=== PATIENT | male | born 1955 | race Caucasian/White ===

== ENCOUNTER → 2016-11-11 | Outpatient (CLI) | payer OTHER ==
[~2016-11-11] MED LIST: ALBU8.5H3 INH; ALBU8.5H5 INH; ALPR0.5T6 PO; ASPI-496 PO; ASPI-515 PO; ASPI-621 PO; ATOR40TA78 PO; ATOR80TA PO; AZIT-14 PO; BENZ100C4 PO; CARV3.122 PO; CARV6.2512 PO; CARV6.252 PO; CEFD300C2 PO; CITA10TA4 PO; CLOP75TA PO; CYAN10005 PO; FLUT1DIS3 INH; GABA300C10 PO; IPRA3AMP NPPB; LEVO750T26 PO; LISI2.5T PO; LISI5TAB7 PO; METH4TAB2 PO; MORP15TA PO; MORP15TA3 PO; MORP15TA39 PO; NICO1PAT4 TD; NITR0.4T8 SL; OMEP40CA6 PO; PRAV80TA2 PO; PRED20TA PO; RANI150T4 PO; TICA90TA PO; WARF5TAB7 PO
== END | disposition home or self-care (01) ==
LOC: CFH 13:47
PROVIDERS: ATTEND Nurse Practitioner Family
DX: J18.9 Pneumonia, unspecified organism (principal)
CPT/HCPCS: 71020

== ENCOUNTER 2017-02-16 17:54 | Emergency (ER) | payer OTHER ==
[~2017-02-16] VITALS: Ht 175.3 cm; Wt 80.0 kg
[~2017-02-16 17:54] MED LIST changes: +AMIODARONE 50 MG/ML, 3ML ONE; +ATROPINE SYRINGE 0.1 MG/ML, 10ML ONE; -AZIT-14 PO; +AZIT250T89 PO; -CEFD300C2 PO; +CEFD300C37 PO; +EPINEPHRINE SYRINGE 0.1 MG/ML, 10ML ONE; +ETOMIDATE 20 MG/10 ML ONE; +MORP-52 PO; -MORP15TA39 PO; +PROPOFOL 10 MG/ML, 100ML IV ONE; +SODIUM BICARB 8.4%, 50ML SYRINGE ONE; +VECURONIUM 10 MG ONE
[2017-02-16] MEDS ORDERED: KETAMINE 10 MG/ML, 20ML ONE ×2 (18:14→18:24)
[2017-02-16] MEDS ORDERED: RACEPINEPHRINE INH 2.25%, 0.5ML ONE (18:24)
[2017-02-16] MEDS ORDERED: PROPOFOL 100 ML IV PRN (18:52)
[2017-02-16] MEDS ORDERED: FENTANYL PF 100 MCG/2ML ONE (18:52)
[2017-02-16 19:00] VITALS: BP 155/87
[2017-02-16] MEDS ORDERED: SODIUM CHLORIDE FLUSH 10ML SYR IVF PRN (19:00)
[2017-02-16] MEDS ORDERED: AMIODARONE 900 MG in DEXTROSE 5% 482 ML IV PRN (19:00)
[2017-02-16] MEDS ORDERED: SODIUM CHLORIDE FLUSH 10ML SYR IVF ONE (19:00)
[2017-02-16] MEDS ORDERED: ETOMIDATE 20 MG/10 ML IV ONE (19:00)
[2017-02-16] MEDS ORDERED: SODIUM CHLORIDE 0.9% 1,000ML IVBOLUS ONE (19:00)
[2017-02-16] MEDS ORDERED: KETAMINE 100 MG/ML, 5ML IV ONE (19:00)
[2017-02-16] MEDS ORDERED: FENTANYL PF 100 MCG/2ML IV ONE (19:00)
[2017-02-16] MEDS ORDERED: EPINEPHRINE 1 MG/ML, 1ML IVPush ONE ×3 (19:00)
[2017-02-16] MEDS ORDERED: SODIUM BICARB 8.4%, 50ML SYRINGE IVPush ONE (19:00)
[2017-02-16 19:10] LABS: ABG COLLECTION SITE RIGHT FEMORAL
[2017-02-16 19:20] LABS: BLOOD UREA NITROGEN 8 mg/dL (7-18)
[2017-02-16 19:30] LABS: ASPARTATE AMINO TRANSFERASE 161 U/L (15-37)
[2017-02-16 19:32] LABS: IS PT STATUS REG ER OR PRE ER? YES
[2017-02-16 19:39] LABS: ABG COLLECTION SITE RIGHT FEMORAL
[2017-02-16] MEDS ORDERED: NOREPINEPHRINE 1 MG/ML, 4ML ONE (19:57)
[2017-02-16] MEDS ORDERED: EPINEPHRINE SYRINGE 0.1 MG/ML, 10ML ONE (19:57)
[2017-02-16] MEDS ORDERED: CALCIUM CHLORIDE 13.6 MEQ/10 ML ONE (19:57)
[2017-02-16] MEDS ORDERED: SODIUM CHLORIDE 0.9%, 250ML ONE (19:57)
[2017-02-16] MEDS ORDERED: SODIUM BICARB 8.4%, 50ML SYRINGE ONE (19:57)
[2017-02-16] MEDS ORDERED: DEXTROSE 50%, 50ML SYRINGE ONE (19:57)
[2017-02-16] MEDS ORDERED: AMIODARONE 50 MG/ML, 3ML ONE (19:57)
[2017-02-16] MEDS ORDERED: CODE BLUE RESPONSE XX ONE (20:00)
[2017-02-16 20:09] LABS: DIFF TOTAL CELLS COUNTED 100 CELL DIFF
[2017-02-16 20:11] LABS: VERIFY COUNTS? YES
[2017-02-16 20:12] LABS: GIANT PLATELETS 1+; LARGE PLATELETS 1+
[2017-02-16] MEDS ORDERED: MORPHINE SULFATE 4 MG/ML, 1ML ONE ×2 (20:20→20:28)
[2017-02-16] MEDS ORDERED: morphine SULFATE 10 MG/ML, 1ML IVPush ONE (20:30)
[2017-02-16] MEDS ORDERED: MORPHINE SULFATE 4 MG/ML, 1ML IVPush ONE (20:30)
== END 2017-02-16 22:03 | disposition expired ==
LOC: ED 18:49
DX: I46.9 Cardiac arrest, cause unspecified (principal); J96.00 Acute respiratory failure, unspecified whether with hypoxia or hypercapnia; I25.2 Old myocardial infarction; E78.5 Hyperlipidemia, unspecified; E87.2 Acidosis; I11.0 Hypertensive heart disease with heart failure; I25.10 Atherosclerotic heart disease of native coronary artery without angina pectoris; I50.9 Heart failure, unspecified; J44.9 Chronic obstructive pulmonary disease, unspecified; Z01.818 Encounter for other preprocedural examination; Z45.2 Encounter for adjustment and management of vascular access device; Z46.82 Encounter for fitting and adjustment of non-vascular catheter; Z95.1 Presence of aortocoronary bypass graft; Z99.81 Dependence on supplemental oxygen
CPT/HCPCS: 31500; 36415; 36600; 71010; 80053; 82803; 83605; 83880; 84484; 85025; 92950; 92960; 93005; 96361; 99291; 99292; J0282; J0461; J2704; J7030; J7050